=== PATIENT | male | born 1955 | race Caucasian/White ===

== ENCOUNTER 2019-12-31 21:02 | Emergency (ER) | payer OTHER ==
[2019-12-31] MEDS ORDERED: Tetan/Diph/Pertus SYR(Tdap)* 0.5 ML SYR(BOOSTRIX) use SYR contains LATEX IM ONE (21:21)
--- NOTE | 2019-12-31 21:22 | ED ---
Laceration/Wound HPI - HPI Summary HPI Summary: Patient complains of laceration to lower lip status post mechanical fall today. Denies any other pain, injuries or symptoms. Tetanus status up-to-date. - History of Current Complaint Stated Complaint: BOTTOM LIP INJURY PER PT Time Seen by Provider: 12/31/19 21:11 Hx Obtained From: Patient Mechanism of Injury: Sharp/Blunt Trauma Onset/Duration: Sudden Onset Aggravating: Nothing Alleviating: Nothing Onset Severity: Mild Current Severity: Mild Pain Intensity: 2 Pain Scale Used: 0-10 Numeric Associated Signs & Symptoms: Negative - Allergy/Home Medications Allergies/Adverse Reactions: Allergies Allergy/AdvReac Type Severity Reaction Status Date / Time No Known Allergies Allergy Verified 12/31/19 21:09 Home Medications: Home Medications Allopurinol TAB* mg PO 06/25/15 [History Confirmed 06/25/15] Aspirin [Aspirin Adult Low Dose] 81 mg PO DAILY 06/25/15 [History Confirmed ] Atorvastatin* mg PO DAILY 06/25/15 [History Confirmed 06/25/15] Lisinopril TAB* mg PO DAILY 06/25/15 [History Confirmed 06/25/15] metFORMIN* mg PO 06/25/15 [History Confirmed 06/25/15] amLODIPine TAB* [Norvasc TAB*] 5 mg PO DAILY #30 tab 03/13/16 [Rx] PMH/Surg Hx/FS Hx/Imm Hx Endocrine/Hematology History: Reports: Hx Diabetes Cardiovascular History: Reports: Hx Hypercholesterolemia, Hx Hypertension Sensory History: Denies: Hx Eye Prosthesis Opthamlomology History: Denies: Hx Legally Blind EENT History: Denies: Hx Deafness Infectious Disease History: No Infectious Disease History: Denies: Traveled Outside the [place] in Last 30 Days - Family History Known Family History: Positive: Non-Contributory - Social History Alcohol Use: Rare Substance Use Type: Reports: None Hx Tobacco Use: Yes - quit February 2016 Smoking Status (MU): Former Smoker Type: Cigarettes Review of Systems Constitutional: Negative Eyes: Negative ENT: Negative Cardiovascular: Negative Respiratory: Negative Gastrointestinal: Negative Genitourinary: Negative Skin: Other Neurological/Mental Status: Negative Psychological: Normal All Other Systems Reviewed And Are Negative: Yes Physical Exam - Summary Physical Exam Summary: Laceration and lower lip that penetrates through from anterior to exterior along the vermilion border. No evidence of dental trauma or looseness Triage Information Reviewed: Yes Vital Signs On Initial Exam: Initial Vitals Temp Pulse Resp BP Pulse Ox 99.2 F 105 18 171/95 96 12/31/19 21:03 12/31/19 21:03 12/31/19 21:03 12/31/19 21:03 12/31/19 21:03 Vital Signs Reviewed: Yes Appearance: Positive: Well-Appearing Skin: Positive: Warm Head/Face: Positive: Normal Head/Face Inspection Eyes: Positive: Normal ENT: Positive: Normal ENT inspection Dental: Negative: Dental Fracture @, Bleeding Neck: Positive: Supple Respiratory/Lung Sounds: Positive: Clear to Auscultation Cardiovascular: Positive: Normal Abdomen Description: Positive: Nontender Musculoskeletal: Positive: Normal Neurological: Positive: Normal Psychiatric: Positive: Normal AVPU Assessment: Alert - [place] Coma Scale Best Eye Response: 4 - Spontaneous Best Motor Response: 6 - Obeys Commands Best Verbal Response: 5 - Oriented Coma Scale Total: 15 Procedures - Sedation Patient Received Moderate/Deep Sedation with Procedure: No - Laceration/Wound Repair 1 Location: mouth Description: Linear Anesthesia: Local, 1.0% Length, Depth and Shape: 2cm x 1cm Betadine Prep?: No Irrigated w/ Saline (ccs): 300 Laceration/Wound Explored: clean Suture Type: Vicryl Number of Sutures: 5 Layer Closure?: No Sterile Dressing Applied?: No 2 Location: mouth Description: Linear Anesthesia: Local, 1.0% Length, Depth and Shape: 2cm x 1cm inner lip. Irrigated w/ Saline (ccs): 300 Laceration/Wound Explored: clean Suture Type: Vicryl Number of Sutures: 4 Layer Closure?: No Sterile Dressing Applied?: No Diagnostics - Vital Signs Vital Signs Temp Pulse Resp BP Pulse Ox 12/31/19 21:03 99.2 F 105 18 171/95 96 - Laboratory Lab Statement: Any lab studies that have been ordered have been reviewed, and results considered in the medical decision making process. Laceration Repair Course/Dx - Course Course Of Treatment: Patient complains of laceration to lower lip status post mechanical fall today. Denies any other pain, injuries or symptoms. Tetanus status up-to-date. Vital signs within normal limits. Wound cleaned and sutured. - Clinical Impression Provider Diagnoses: Laceration of lip Discharge ED - Sign-Out/Discharge Documenting (check all that apply): Patient Departure - Discharge Plan Condition: Stable Disposition: HOME Patient Education Materials: Laceration (ED), Care For Your Absorbable Stitches (ED) Referrals: Rigo Pedersen MD [Primary Care Provider] - Additional Instructions: Leave absorbable sutures in your lip until they fall out on their own. You may eat and drink normally starting tomorrow. Return to the ED for any new or worsening symptoms. - Billing Disposition and Condition Condition: STABLE Disposition: Home
[2019-12-31 22:11] VITALS: BP 163/102
== END 2019-12-31 22:08 | disposition home or self-care (01) ==
LOC: ED 21:02
DX: S01.511A Laceration without foreign body of lip, initial encounter (principal); E11.9 Type 2 diabetes mellitus without complications; E78.00 Pure hypercholesterolemia, unspecified; I10 Essential (primary) hypertension; W19.XXXA Unspecified fall, initial encounter; Y92.9 Unspecified place or not applicable; Z79.82 Long term (current) use of aspirin; Z79.899 Other long term (current) drug therapy; Z79.84 Long term (current) use of oral hypoglycemic drugs; Z87.891 Personal history of nicotine dependence
CPT/HCPCS: 12013; 90471; 90715; 99282

== ENCOUNTER 2020-01-08 08:51 | Emergency (ER) | payer OTHER ==
--- NOTE | 2020-01-08 09:07 | ED ---
Skin Complaint - HPI Summary HPI Summary: Pt. is a 64 y.o male who presents to the ER for wound check. Pt. was seen in ED 12/31/2019 for a lip laceration after he tripped and fell. Pt. notes his front teeth punctured through his bottom lip. Pt. states he received dissolvable sutures to out and inner lower lip. Pt. states he believes sutures inside of mouth fell out and he notes sutures on the outside were bothering his skin so he took them out. Pt. concerned wound may be getting infected as it is getting more sore. Hx of DM. Denies fever, chills, N/V. Sxs are mild in severity. No current modifying factors. - History of Current Complaint Chief Complaint: EDLacSutureRecheck Time Seen by Provider: 01/08/20 09:06 Stated Complaint: LIP INJURY Hx Obtained From: Patient Pain Intensity: 3 - Allergy/Home Medications Allergies/Adverse Reactions: Allergies Allergy/AdvReac Type Severity Reaction Status Date / Time No Known Allergies Allergy Verified 01/08/20 09:05 Home Medications: Home Medications Allopurinol TAB* [Zyloprim 300 MG TAB*] 300 mg PO DAILY 01/08/20 [History Confirmed 01/08/20] Amoxicillin/Clavulanate TAB* [Augmentin TAB 875*] 875 mg PO BID #20 tab [Rx] Atorvastatin* [Lipitor*] 40 mg PO DAILY 01/08/20 [History Confirmed 01/08/20] Gabapentin CAP(*) [Neurontin 100 mg CAP(*)] 100 mg PO TID 01/08/20 [History Confirmed 01/08/20] Hydrochlorothiazide TAB* [Hydrodiuril TAB*] 12.5 mg PO DAILY 01/08/20 [History Confirmed 01/08/20] Insulin Glargine,Hum.rec.anlog [Basaglar Kwikpen 100 inuts/ml 3 ml x 5 Pens] 50 units SUBCUT DAILY MDD 60u 01/08/20 [History Confirmed 01/08/20] amLODIPine TAB* [Norvasc TAB*] 10 mg PO DAILY 01/08/20 [History Confirmed ] glipiZIDE TAB* [Glucotrol TAB*] 5 mg PO BID 01/08/20 [History Confirmed 01/08/20 ] lisinopriL [Lisinopril] 40 mg PO DAILY 01/08/20 [History Confirmed 01/08/20] metFORMIN* [Glucophage 1000 MG TAB *] 1,000 mg PO BID 01/08/20 [History Confirmed 01/08/20] PMH/Surg Hx/FS Hx/Imm Hx Previously Healthy: Yes Endocrine/Hematology History: Reports: Hx Diabetes Cardiovascular History: Reports: Hx Hypercholesterolemia, Hx Hypertension Sensory History: Denies: Hx Eye Prosthesis, Hx Legally Blind, Hx Deafness Opthamlomology History: Denies: Hx Eye Prosthesis, Hx Legally Blind Infectious Disease History: No Infectious Disease History: Denies: Traveled Outside the [place] in Last 30 Days - Family History Known Family History: Positive: Non-Contributory - Social History Occupation: Retired Lives: With Family Alcohol Use: Rare Substance Use Type: Reports: None Hx Tobacco Use: Yes - quit February 2016 Smoking Status (MU): Former Smoker Type: Cigarettes Review of Systems Constitutional: Negative Negative: Fever Gastrointestinal: Negative Negative: Vomiting, Nausea Positive: Other - wound to lower lip All Other Systems Reviewed And Are Negative: Yes Physical Exam Triage Information Reviewed: Yes Vital Signs On Initial Exam: Initial Vitals Temp Pulse Resp BP Pulse Ox 97.5 F 83 16 174/101 96 01/08/20 09:00 01/08/20 09:00 01/08/20 09:00 01/08/20 09:00 01/08/20 09:00 Vital Signs Reviewed: Yes Appearance: Positive: Well-Appearing - Pt. sitting on bed in NAD. Skin: Positive: Warm, Dry Head/Face: Positive: Normal Head/Face Inspection Eyes: Positive: Normal, EOMI ENT: Positive: Other - 1cm dehisence noted to inner lower lip. Granulation tissue noted. No lip erythema or edema. Minimal pain. Neck: Positive: Supple Neurological: Positive: Normal, CN Intact II-III Psychiatric: Positive: Affect/Mood Appropriate Procedures - Sedation Patient Received Moderate/Deep Sedation with Procedure: No Diagnostics - Vital Signs Vital Signs Temp Pulse Resp BP Pulse Ox 01/08/20 09:00 97.5 F 83 16 174/101 96 - Laboratory Lab Statement: Any lab studies that have been ordered have been reviewed, and results considered in the medical decision making process. Course/Dx - Course Course Of Treatment: Pt. here for wound check. Afebrile and well appearing. Outer wound healing well. Inner lip wound appears to have dehisced. Potential early infection. Will start on Augmentin. Advised salt water rinses after eating. To fu with pcp for wound check in 2-3 days. Will return to ER for redness, swelling, drainage, fever or if concerned. Pt. understands and agrees with plan. - Differential Diagnoses - Skin Complaint Differential Diagnoses: Abscess, Cellulitis - Diagnoses Provider Diagnoses: Wound dehiscence Discharge ED - Sign-Out/Discharge Documenting (check all that apply): Patient Departure - Discharge Plan Condition: Good Disposition: HOME Prescriptions: Amoxicillin/Clavulanate TAB* [Augmentin TAB 875*] 875 mg PO BID #20 tab Patient Education Materials: Wound Infection (ED), Wound Dehiscence (ED) Referrals: Rigo Pedersen MD [Primary Care Provider] - Additional Instructions: Follow up with PCP on Monday or Monday for a wound check Take antibiotic as directed Rinse mouth with warm salt water after eating Apply warm compresses to lip Return to ER for increased pain, redness, swelling, drainage, fever or if concerned - Billing Disposition and Condition Condition: GOOD Disposition: Home
[2020-01-08 09:56] VITALS: BP 176/91
== END 2020-01-08 09:55 | disposition home or self-care (01) ==
LOC: ED 08:51
DX: T81.33XA Disruption of traumatic injury wound repair, initial encounter (principal); E11.9 Type 2 diabetes mellitus without complications; Z79.84 Long term (current) use of oral hypoglycemic drugs; Z79.4 Long term (current) use of insulin; E78.00 Pure hypercholesterolemia, unspecified; I10 Essential (primary) hypertension; Z79.899 Other long term (current) drug therapy; Z87.891 Personal history of nicotine dependence
CPT/HCPCS: 99282